=== PATIENT | male | born 1995 | race Caucasian/White ===

== ENCOUNTER 2024-03-31 09:32 | Inpatient (IN) | payer MEDICAID, SELFPAY ==
--- NOTE | ~2024-03-31 | XR_ITS ---
EXAMINATION: XR LUMBOSACRAL SPINE CLINICAL INFORMATION: Chronic back pain. COMPARISON: None available. TECHNIQUE: 3 views of the lumbosacral spine. FINDINGS: There is Castellvi type IV transitional anatomy at the lumbosacral junction. Minimal levocurvature of the lumbar spine which may be positional. The lumbar lordosis is maintained. The lumbar lordosis is maintained. No acute fracture or subluxation. No loss of vertebral body or intervertebral disc height. No concerning lytic or blastic osseous lesion. No abnormal soft tissue calcification. XR/XR lumbar spine 2-3V IMPRESSION: 1. Minimal levocurvature of the lumbar spine which may be positional. 2. No acute osseous abnormality. Electronically signed by: Eric Pastor MD 03/31/2024 11:43 AM EDT
[2024-03-31 09:50] VITALS: BP 151/97; BP 186/111; PULSE 124; PULSE 132; RESP 16; TEMP 37.2; O2SAT 100; O2SAT 98; BMI 24.8
[2024-03-31 09:52] VITALS: RESP 16
--- NOTE | 2024-03-31 09:54 | PC.NURSE ---
Jared comes to the ED today reports SI without a plan. He reports that he has been daily drinking for about 1 year now, attempted to quit but immediately went back to drinking. He reports that he drinks to make the suicidal thoughts go away most days. He reports increasing stressors that cause him to want to drink and kill himself. Pt is calm and cooperative, help seeking. he reports that he attempted to reach out to [facility] before calling 911 to see if he could get into detox by himself. Pt aware of plan of care for medical clearance then CARE team evaluation
--- NOTE | 2024-03-31 10:06 | ED_ITS ---
HPI - Psych General Chief Complaint: ETOH/Substance Use Stated Complaint: ETOH USE,SI W/NO PLAN,CALM/COOP @THIS TIME PER EMS Source: patient, EMS and old records reviewed Mode of arrival: EMS Limitations: no limitations History of Present Illness ED Provider: DANI TINEO Narrative: 29 yo male with PMH of ETOH abuse here with depression and SI - denies trauma, ingestions or falls. He denies withdrawal seizures, has chronic back pain but no falls has never had imaging before. He is intoxicated currently. MD complaint: suicidal ideation, feels depressed and alcohol abuse Onset (ago): year(s) Duration: intermittent and getting worse History of same: Yes Relieving factors: none Exacerbating factors: alcohol Context: recent alcohol abuse and significant life stressor Associated psychiatric symptoms: depression and suicidal ideation Associated symptoms: denies other symptoms Treatments prior to arrival: none If self harm: admits thoughts of self harm Related Data Home Medications ?Medication ?Instructions ?Recorded ?Confirmed No Known Home Meds 03/31/24 03/31/24 Allergies Allergy/AdvReac Type Severity Reaction Status Date / Time No Known Allergies Allergy Verified 03/31/24 09:52 Review of Systems 2 Review of Systems: Constitutional : No Fever, No Chills ENT/Mouth : No Ear Pain, No Nasal Congestion, No sore throat Eyes: No Eye Pain, No Swelling, No Redness Cardiovascular : No Chest Pain, No SOB Respiratory : No Cough, No Sputum, No Dyspnea Gastrointestinal : No Nausea, No Vomiting, No Diarrhea, No Hematochezia, No Melena Genitourinary : No Dysuria, No Urinary Frequency, No Hematuria Musculoskeletal : No Myalgias Skin : No Skin Lesions, No rash Neuro : No Weakness, No Numbness, No Paresthesias, No Dizziness, No Headache Psych : positive Anxiety, positive Depression, positive SI no HI All other systems reviewed and are negative PMFSH Past Medical History Attestation statement: The following information was validated with the patient. Medical History Alcohol abuse Social History Social History (Updated 03/31/24 @ 10:11 by Conchita Chang DO) Patient Tobacco Use Status: Never used Tobacco Smoked in Last 30 Days: No Use of substances other than those prescribed or required for medical reasons: No Advance Directives: No Advance Directives Information Provided: Yes Physical Exam 2 Vital Signs: Vital Signs: Last Vital Signs Temp 99.0 F 03/31/24 09:50 Pulse 132 H 03/31/24 09:50 Resp 16 03/31/24 09:52 BP 151/97 H 03/31/24 09:50 Pulse Ox 98 03/31/24 09:50 O2 Del Method Room Air 03/31/24 09:50 BMI result Body Mass Index 24.8 Appearance: Alert. Oriented X3. No acute distress. intoxicated Eyes: Pupils equal, round and reactive to light. ENT: Pharynx normal. Neck: Normal inspection. Neck supple. CVS: Normal heart rate and rhythm. Pulses normal. Respiratory: No respiratory distress. Breath sounds normal. Abdomen: Soft and nontender. Skin: Skin warm and dry. Normal skin color. Normal skin turgor. Extremities: No lower extremity edema. Neuro: Oriented X 3. No motor deficit. No sensory deficit. CN2-12 intact Medications Administered Generic Name Dose Route Start Last Admin Trade Name Freq PRN Reason Stop Dose Admin Nicotine Polacrilex 2 mg 03/31/24 12:37 03/31/24 12:46 Nicotine Polacrilex 2 Mg Gum BUCCAL 2 mg Q2H PRN Administration Nicotine Cravings Discontinued Medications Generic Name Dose Route Start Last Admin Trade Name Freq PRN Reason Stop Dose Admin Ondansetron HCl 4 mg 03/31/24 13:13 03/31/24 13:18 Ondansetron Odt 4 Mg Tab.Rapdis TRANSLINGU 03/31/24 13:14 4 mg ONCE ONE Administration Thiamine HCl 100 mg 03/31/24 09:56 03/31/24 10:12 Thiamine Hcl 100 Mg Tablet PO 03/31/24 09:57 100 mg ONCE ONE Administration Medical Decision Making Medical Decision Making [facility] Narrative: 29 yo male intoxicated here with c/o SI at this time chronic back pain complaints though no red flags or trauma will obtain imaging for old compression fracture - basic labs, CIWA, thiamine PRN ativan and CARE team consult Differential Diagnosis Differential Diagnoses: The differential diagnosis associated with the presentation includes SI, depression, ETOH abuse Admission/Observation Consideration of admission/observation: Escalation of care including admission/observation considered physician observation started at 1015am pending CARE team Consult Healthcare Provider Management of the patient was discussed with: Behavioral Health Provider Lab Data [facility] Lab Attestation statement: I reviewed the patient's lab results. 03/31/24 11:02 03/31/24 11:02 Labs: Lab Results 03/31/24 03/31/24 Range/Units 10:00 11:02 WBC 3.9 L (4.8-10.8) X10*3/uL RBC 4.42 L (4.60-5.80) X10*6/uL Hgb 14.8 (14.0-18.0) g/dl Hct 41.6 L (42.0-52.0) % MCV 94.1 (80.0-98.0) fL MCH 33.5 H (27.0-33.0) pg MCHC 35.6 (31.0-36.0) g/dl RDW 12.7 (11.0-16.0) % Plt Count 192 (160-400) X10*3/uL MPV 9.0 L (9.4-12.4) fL Immature Gran % (Auto) 0.5 H (0.0-0.4) % Neut % (Auto) 65.9 (45-73) % Lymph % (Auto) 16.0 L (20-40) % [place] % (Auto) 15.8 H (2-11) % Eos % (Auto) 0.5 (0-4) % Baso % (Auto) 1.3 (0-2) % Lymph # (Auto) 0.6 L (1.2-4.9) X10*3/uL [place] # (Auto) 0.6 (0.1-1.2) X10*3/uL Eos # (Auto) 0.0 (0.0-0.4) X10*3/uL Baso # (Auto) 0.1 (0.0-0.2) X10*3/uL Abs Immat Gran (auto) 0.02 (0.00-0.03) X10*3/uL Absolute Neuts (auto) 2.6 (2.0-8.3) x10*3/uL Absolute Nucleated RBC 0.000 (0.0-0.012) X10*3/uL Nucleated RBC % (auto) 0.0 (0.0-0.2) /100WBC Sodium 139 (135-145) mmol/L Potassium 4.0 (3.3-5.1) mmol/L Chloride 96 (96-108) mmol/L Carbon Dioxide 23 (22-29) mmol/L Anion Gap 24 H (12-20) BUN 4 L (9-16) mg/dL Creatinine 0.74 (0.5-1.4) mg/dL Estim Creat Clear Calc 163.1 Estimated GFR > 60 Random Glucose 83 (60-115) mg/dL Calcium 9.5 (8.4-10.2) mg/dL Total Bilirubin 0.9 (0.0-1.0) mg/dL AST 298 H (5-37) U/L ALT 114 H (0-40) U/L Alkaline Phosphatase 135 H (39-117) U/L Total Protein 7.6 (6.5-8.0) g/dL Albumin 4.3 (3.5-5.0) g/dL Urine Color Yellow Urine Appearance Clear Urine pH 5.5 (5.0-9.0) Ur Specific [place] 1.010 (1.005-1.025) Urine Protein 100 (2+) H (Neg-Trace) mg/dL Urine Glucose (UA) Negative (Negative) mg/dL Urine Ketones 40 (Negative) mg/dL Urine Blood Negative (Negative) Urine Nitrite Negative (Negative) Ur Leukocyte Esterase Negative (Negative) Urine RBC 0-2 (0-2) /HPF Urine WBC 0-5 (0-5) /HPF Ur Squamous Epith Cells 0-2 (0-2) /HPF Urine Bacteria None Seen (None Seen) Hyaline Casts 3-5 (0-2) /LPF Urine Opiates Screen Not Detected (Not Detect) Ur Buprenorphine Scrn Not Detected (Not Detect) ng/mL Ur Oxycodone Screen Not Detected (Not Detect) ng/mL Urine Methadone Screen Not Detected (Not Detect) ng/mL Urine Fentanyl Screen Not Detected (Not Detect) Ur Barbiturates Screen Not Detected (Not Detect) Ur Phencyclidine Scrn Not Detected (Not Detect) Ur Amphetamines Screen Not Detected (Not Detect) U Benzodiazepines Scrn Not Detected (Not Detect) Urine Cocaine Screen Not Detected (Not Detect) U Marijuana (THC) Screen Not Detected (Not Detect) Ethyl Alcohol 399 H* mg/dL Independent Interpretation I performed an independent interpretation of an: Plain X-Ray (no fracture) Radiology Impression Discussion of test interpretation with radiology: I have reviewed the radiologist's reading. Independent Historian Clinical information obtained from an independent historian. History obtained from or confirmed by: EMS Discharge Plan Discharge Clinical Impression: Alcohol abuse Patient Disposition: Still a Patient Prescriptions: No Action No Known Home Meds Print Language: Yoruba
[2024-03-31] MEDS: Thiamine HCL 100 MG TABLET PO (10:12)
[2024-03-31 10:17] LABS: Appearance Urine Clear; Color Urine Yellow; Glucose Urine UA Negative (Negative); Leukocyte Esterase Urine Negative (Negative); Nitrite Urine Negative (Negative); PH 5.5 (5.0-9.0); UMIC TRIGGER UACC YES; Urine Blood Negative (Negative); Urine Ketones 40 mg/dL (Negative); Urine Protein 100 (2+) mg/dL (Neg-Trace)
[2024-03-31 10:22] LABS: Amphetamine Screen Urine Not Detected (Not Detect); Barbiturates, Urine Not Detected (Not Detect); Benzodiazepines Screen Urine Not Detected (Not Detect); Buprenorphine Scr Not Detected (Not Detect); Cannabinoid Screen Urine Not Detected (Not Detect); Cocaine Screen Urine Not Detected (Not Detect); Fentanyl, urine Not Detected (Not Detect); Methadone Screen, Urine Not Detected (Not Detect); Opiate Screen Urine Not Detected (Not Detect); Oxycodone Screen Urine Not Detected (Not Detect); Phencyclidine Screen Urine Not Detected (Not Detect)
[2024-03-31 10:41] LABS: Bacteria Urine None Seen (None Seen); RBC Urine 0-2 /HPF (0-2); Squamous Epithelial Cell Urine 0-2 /HPF (0-2); WBC Urine 0-5 /HPF (0-5)
[2024-03-31 11:33] LABS: MANUAL DIFF FLAG NO
[2024-03-31 11:40] LABS: Basophils Absolute Auto 0.1 X10*3/uL (0.0-0.2); Basophils Percent Auto 1.3 % (0-2); Eosinophils Percent Auto 0.5 % (0-4); Hematocrit 41.6 % (42.0-52.0); Hemoglobin 14.8 g/dl (14.0-18.0); Imm Gran Abs Auto 0.02 X10*3/uL (0.00-0.03); Imm Gran Pct Auto 0.5 % (0.0-0.4); Lymphocytes Absolute Auto 0.6 X10*3/uL (1.2-4.9); Mean Corpuscular HGB Conc 35.6 g/dl (31.0-36.0); Mean Corpuscular Hemoglobin 33.5 pg (27.0-33.0); Mean Corpuscular Volume 94.1 fL (80.0-98.0); Monocytes Absolute Auto 0.6 X10*3/uL (0.1-1.2); Monocytes Percent Auto 15.8 % (2-11); Neutrophils Absolute Auto 2.6 x10*3/uL (2.0-8.3); Neutrophils Percent Auto 65.9 % (45-73); Platelet Count 192 X10*3/uL (160-400); Red Blood Count 4.42 X10*6/uL (4.60-5.80); Red Cell Distribution Width 12.7 % (11.0-16.0); White Blood Count 3.9 X10*3/uL (4.8-10.8)
[2024-03-31 11:52] LABS: Alanine Aminotransferase 114 U/L (0-40); Albumin Level 4.3 g/dL (3.5-5.0); Alkaline Phosphatase 135 U/L (39-117); Anion Gap 24 (12-20); Aspartate Amino Transferase 298 U/L (5-37); Bilirubin Total 0.9 mg/dL (0.0-1.0); Blood Urea Nitrogen 4 mg/dL (9-16); Calcium 9.5 mg/dL (8.4-10.2); Carbon Dioxide 23 mmol/L (22-29); Chloride 96 mmol/L (96-108); Creatinine Clr Calc Pharmacy 163.1; Estimated Glomerular Filt Rate > 60; Ethanol 399 mg/dL; Glucose Random 83 mg/dL (60-115); Sodium 139 mmol/L (135-145); Total Protein 7.6 g/dL (6.5-8.0)
[2024-03-31] MEDS: Nicotine Polacrilex 2 MG GUM BUCCAL ×3 (12:46→22:23)
[2024-03-31] MEDS: Ondansetron ODT 4 MG TAB.RAPDIS TRANSLINGU (13:18)
[2024-03-31 20:34] VITALS: BP 132/86; PULSE 96; RESP 18; TEMP 37; O2SAT 98
[2024-03-31 22:23] VITALS: BP 135/90; PULSE 125; RESP 20; O2SAT 98
[2024-03-31] MEDS: LORazepam 1 MG TABLET 2 MG PO (22:23)
[2024-04-01] VITALS (10 sets, daily range): BP systolic 127–151; BP diastolic 84–98; PULSE 108–127; RESP 16–30; TEMP 36.2–37.2; O2SAT 95–98; BMI 29.3
[2024-04-01] MEDS: Nicotine Polacrilex 2 MG GUM BUCCAL ×5 (01:42→14:55)
--- NOTE | 2024-04-01 01:49 | PC.NURSE ---
pt asking for nicotine gum, given.
[2024-04-01] MEDS: LORazepam 1 MG TABLET 2 MG PO ×3 (03:49→10:32)
--- NOTE | 2024-04-01 03:50 | PC.NURSE ---
medicated for withdrawal.
--- NOTE | 2024-04-01 09:15 | PC.NURSE ---
Pt making bizarre statements- thinking we were talking about beautiful process and it was directed at him. Pt able to redirected- Pt noticeably shaking- pt medicated as per KERRY
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
[2024-04-01] MEDS: LORazepam 2 MG/ML VIAL IVPUSH ×2 (12:33→20:31)
[2024-04-01] MEDS: PHENobarbitaL sodium 130 MG/ML IM ONCE 375 MG IM (12:44)
--- NOTE | 2024-04-01 13:00 | P.HPHOSP_ITS ---
History of Present Illness Date of Service: 04/01/24 Chief Complaint: etoh withdrawal, depression, SI 29 yo male with a pmhx signficant for etoh abuse and depression, presented to the ED with etoh withdrawal, SI and depression. he reports heavy etoh use since a teenager, currently consuming 1 handle of etoh/day. would like to stop drinking. no nausea or vomiting. nurses noted visual and auditory hallucinations, pt declines. difficult history to obtain. Review of Systems 2 Constitutional: Constitutional: Denies body ache(s), Denies fatigue and Denies headache(s) Eyes: Eyes: Denies change in vision ENT: Denies headache(s), Denies nasal congestion and Denies nasal discharge Cardiovascular: Cardiovascular: Denies dyspnea Respiratory: Respiratory: Denies cough and Denies dyspnea Gastrointestinal: Gastrointestinal: Denies melena, Denies constipation, Denies diarrhea, Denies nausea and Denies vomiting Genitourinary: Genitourinary: Denies dysuria Musculoskeletal: Musculoskeletal: Denies myalgias and Denies muscle weakness Integumentary/Breasts: Skin/Breast: Denies rash Neurologic: Reports as per HPI and Denies headache(s) Psychiatric: Psychiatric: Reports depression Endocrine: Endocrine: Denies fatigue PMFSH Medical History Alcohol abuse Social History Alcohol intake: current Alcohol intake frequency: 3 or more drinks per day Alcohol type: beer and hard liquor Comment: 1 handle/day Patient Tobacco Use Status: Current everyday Tobacco user Smoked in Last 30 Days: No Use of substances other than those prescribed or required for medical reasons: No Advance Directives: No Advance Directives Information Provided: Yes Nutrition Risks: No Nutritional Risk Narrative: current tobacco smoker, amount unclear. consumes 1 handle of etoh/day. Meds Allergies Allergy/AdvReac Type Severity Reaction Status Date / Time No Known Allergies Allergy Verified 03/31/24 09:52 Active Medications: Current Medications Lorazepam (Lorazepam 1 Mg Tablet) 2 mg PO Q3H PRN PRN Reason: Alcohol Withdrawal Last Admin: 04/01/24 09:06 Dose: 2 mg Nicotine Polacrilex (Nicotine Polacrilex 2 Mg Gum) 2 mg BUCCAL Q2H PRN PRN Reason: Nicotine Cravings Last Admin: 04/01/24 12:03 Dose: 2 mg Pharmacy Consult (Consult Rx Etoh Phenob Im/Po) 1 each MISCELLANE ONCE PRN; Protocol PRN Reason: Consult order Phenobarbital (Phenobarbital 30 Mg Tablet) 60 mg PO BID TOÑO; Protocol Stop: 04/03/24 21:01 Phenobarbital (Phenobarbital 30 Mg Tablet) 30 mg PO BID TOÑO; Protocol Stop: 04/05/24 21:01 Phenobarbital (Phenobarbital 30 Mg Tablet) 30 mg PO DAILY TOÑO; Protocol Stop: 04/07/24 09:01 Phenobarbital Sodium (Phenobarbital Sodium 130 Mg/Ml Im Once) 375 mg IM ONCE ONE; Protocol Stop: 04/01/24 13:01 Last Admin: 04/01/24 12:44 Dose: 375 mg Phenobarbital Sodium (Phenobarbital Sodium 130 Mg/Ml Vial Im Q3hx2) 280 mg IM Q3H TOÑO; Protocol Stop: 04/01/24 19:01 Home Medications ?Medication ?Instructions ?Recorded ?Confirmed ?Last Taken ?Type No Known Home Meds 03/31/24 03/31/24 Unknown History Physical Exam 2 Vital Signs and Narrative: Vital Signs: Last Vital Signs Temp 98.7 F 04/01/24 09:07 Pulse 127 H 04/01/24 12:44 Resp 18 04/01/24 12:44 BP 143/96 H 04/01/24 12:44 Pulse Ox 98 04/01/24 12:44 O2 Del Method Room Air 04/01/24 12:44 BMI result Body Mass Index 24.8 General: AOx3, no acute distress Resp: CTA bilaterally CVS: S1, S2, RR, tachy GI: +BS, NT, no distention Skin: Warm, mild perspiration on back/face Neuro: Moderate tremor when raising arms, difficulty with coordination Extremities: No edema Psych: Anxious, guarded Results Labs 03/31/24 11:02 04/01/24 14:00 Assessment and Plan (1) Alcohol withdrawal: Status: Acute (2) Alcohol abuse: Status: Acute Plan 29 yo male with a pmhx signficant for etoh abuse and depression, presented to the ED with etoh withdrawal, SI and depression. acute etoh withdrawal - moderate tremor, nursing reports auditory and visual hallucinations, no nausea, vomiting or headache - CIWA-Ar currently 26 - received phenobarb protocol, lorazepam, thiamine in ED - continue phenobarb protocol - Daily MVI, folic acid 1mg, thiamine 100mg QD - IV famotidine - continue CIWA scale - addiction med consult - admit to telemetry depression/SI - CARE consult in leukopenia and tachycardia - not sepsis due to withdrawal full code VTE prohy: pneumoboots and lovenox Pt with acute etoh withdrawal requring admission to telemetry for treatment and monitoring through withdrawal for at least 2 midnights stay. Quality Stroke Does the patient have a stroke diagnosis?: No VTE Prior VTE?: No VTE Risk Level:: Medical - moderate - high VTE Device Contraindication: N/A - Device Ordered VTE Drug Contraindication: N/A - Med Ordered
--- NOTE | 2024-04-01 13:15 | PHA.MEDREC ---
Pharmacy Consult ? Medication Reconciliation Pharmacy reviewed med recd one by nursing. Patient not able to speak due to state of being right now. No claims were found in our system which matches patient stating they are not taking anything to the nurse.
--- NOTE | 2024-04-01 13:20 | PC.NURSE ---
IV placed by this RN. when returning to the patient after obtaining meds, he was very paranoid and stating that people in there are cutting off legs I heard them say it referencing the x ray room across the tadeo. Pt attempted to pull out the IV. Pt stood up and was agitated. Security called to bedside and two other RNs. Pt eventually deescalated and consented to ativan and phenobarn for alcohol withdrawal. Sitter at bedside.
[2024-04-01] MEDS: Lactated Ringers 1,000 ML 100 ML IVCONT (14:35)
[2024-04-01 14:42] LABS: Anion Gap 25 (12-20); Blood Urea Nitrogen 5 mg/dL (9-16); Calcium 9.6 mg/dL (8.4-10.2); Carbon Dioxide 19 mmol/L (22-29); Chloride 91 mmol/L (96-108); Creatinine Clr Calc Pharmacy 138.7; Estimated Glomerular Filt Rate > 60; Glucose Random 84 mg/dL (60-115); Magnesium 1.8 mg/dL (1.6-2.6); Potassium 3.6 mmol/L (3.3-5.1); Sodium 131 mmol/L (135-145)
[2024-04-01] MEDS: Folic Acid 1 MG TABLET PO (14:55)
[2024-04-01 15:03] LABS: Folate 11.4 ng/mL (> or = 4.0); Vitamin B12 488 pg/mL (200-900)
[2024-04-01] MEDS: PHENobarbitaL sodium 65 MG/ML VIAL IVPUSH (15:24)
--- NOTE | 2024-04-01 15:24 | PC.NURSE ---
IVP phenobarb verified and confirmed with Dr. Mcnally and pharmacy
[2024-04-01] MEDS: PHENobarbitaL sodium 130 MG/ML VIAL IM Q3Hx2 280 MG IM ×2 (16:39→19:33)
--- NOTE | 2024-04-01 18:42 | MHC.EDTECH ---
Dinner tray given
--- NOTE | 2024-04-01 20:38 | PC.NURSE ---
pt became agitated while attempting to transport to floor. given ativan. transported by WORKFORCE SPECIALIST, sitter and security.
[2024-04-01] MEDS: 0.9 % Sodium Chloride Flush 3 ML SYRINGE IVFLUSH (21:12)
[2024-04-01] MEDS: Famotidine/PF 20 MG/2 ML VIAL IVPUSH (21:12)
[2024-04-02] VITALS: BP 121/72; PULSE 101; RESP 16; TEMP 36.3; O2SAT 97
[2024-04-02] MEDS: Lactated Ringers 1,000 ML 100 ML IVCONT ×2 (02:35→07:05)
[2024-04-02 04:00] VITALS: BP 138/87; PULSE 82; RESP 20; TEMP 37.2; O2SAT 96
[2024-04-02] MEDS: LORazepam 1 MG TABLET 2 MG PO ×3 (05:06→13:04)
[2024-04-02 07:33] LABS: MANUAL DIFF FLAG NO
[2024-04-02 07:49] LABS: Basophils Absolute Auto 0.1 X10*3/uL (0.0-0.2); Basophils Percent Auto 1.1 % (0-2); Eosinophils Percent Auto 0.9 % (0-4); Hematocrit 35.8 % (42.0-52.0); Imm Gran Abs Auto 0.02 X10*3/uL (0.00-0.03); Imm Gran Pct Auto 0.4 % (0.0-0.4); Lymphocytes Absolute Auto 0.6 X10*3/uL (1.2-4.9); Lymphocytes Percent Auto 13.4 % (20-40); Mean Corpuscular HGB Conc 36.3 g/dl (31.0-36.0); Mean Corpuscular Hemoglobin 33.9 pg (27.0-33.0); Mean Corpuscular Volume 93.2 fL (80.0-98.0); Mean Platelet Volume 10.1 fL (9.4-12.4); Monocytes Absolute Auto 0.7 X10*3/uL (0.1-1.2); Monocytes Percent Auto 14.9 % (2-11); Neutrophils Absolute Auto 3.3 x10*3/uL (2.0-8.3); Neutrophils Percent Auto 69.3 % (45-73); Platelet Count 160 X10*3/uL (160-400); Red Blood Count 3.84 X10*6/uL (4.60-5.80); Red Cell Distribution Width 12.2 % (11.0-16.0); White Blood Count 4.7 X10*3/uL (4.8-10.8)
[2024-04-02 08:00] VITALS: BP 148/96; PULSE 121; RESP 20; TEMP 36.1; O2SAT 97
[2024-04-02 08:01] LABS: Anion Gap 20 (12-20); Blood Urea Nitrogen 3 mg/dL (9-16); Calcium 9.8 mg/dL (8.4-10.2); Carbon Dioxide 22 mmol/L (22-29); Chloride 96 mmol/L (96-108); Creatinine Clr Calc Pharmacy 180.2; Estimated Glomerular Filt Rate > 60; Glucose Random 98 mg/dL (60-115); Magnesium 1.8 mg/dL (1.6-2.6); Potassium 3.5 mmol/L (3.3-5.1); Sodium 134 mmol/L (135-145)
[2024-04-02] MEDS: Thiamine HCL 100 MG TABLET PO (08:15)
[2024-04-02] MEDS: Multivitamin TABLET 1 TAB PO (08:15)
[2024-04-02] MEDS: PHENobarbitaL 30 MG TABLET 60 MG PO ×2 (08:15→21:52)
[2024-04-02] MEDS: 0.9 % Sodium Chloride Flush 3 ML SYRINGE IVFLUSH ×2 (08:16→21:52)
[2024-04-02] MEDS: Nicotine Polacrilex 2 MG GUM BUCCAL (08:43)
--- NOTE | 2024-04-02 10:57 | MHC.RECOVRN ---
Addendum entered by Jes Mackenzie RN 04/03/24 09:14: Unable to complete AUDIT C with pt. due to confusion, hallucination/delusions. Will attempt at a later date Original Note: Met with pt in 482-1? after consultation placed to Addiction Medicine for ETOH abuse/Withdrawal? Chart review completed and received report from floor nurse Tiny. Pt had presented to the ED with SI without plan secondary to increased ETOH use. Initially a bed search for psych placement was initiated but as pt. Appeared to begin significant ETOH W/D he was admitted to the floor for treatment and monitoring through W/D. He is currently receiving phenobarbital protocol.? ? Upon assessment pt is sitting in the recliner awake and alert with a sitter at bedside.? ? He is reporting diarrhea, has visible hand tremors and presents with auditory/visual disturbances as well as delusions.? He is only oriented to person.? He does appear comfortable and denies any distress.? CIWA this AM was 12.? Pt has Ativan available Q 3 hours as needed.? Last dose was received approx 2 hours ago.? Pt reports to this medical technical writer that he has been drinking since the age of 18 but that it has only recently started to elevate.? He could not give me an amount or frequency of drinking but did report to ED nurse that he drinks regularly to make his suicidal thoughts go away and the day he was brought in (03/31 @ 9:50AM) he had drank 6 ?Natty Daddys?. Due to pt?s mental status and orientation it was difficult to determine a possible POC with him at this visit.? He may need psych stabilization before he can participate in planning for his recovery.??? T/W provided pt with resources for AUD and will return tomorrow to review with him, if he is more clear minded.? Report provided to floor nurse Tiny along with ACS team.
[2024-04-02] MEDS: OLANZapine 10 MG VIAL 5 MG IM (11:29)
--- NOTE | 2024-04-02 11:31 | PC.NURSE ---
code assist called on patient at 8:15 due to patient running into other patients rooms and refusing to settle down when staff attempted to redirect him. PO ativan given per AUG. MD called to bedside at 11:00 for patient becoming increasingly agitated and restless. Patient attempted to slam arm in closet door to remove IV tubing. Patient continued to pace room yelling. 5mg IM zyprexa ordered and administered per AUG. sitter remains at bedside
[2024-04-02 12:00] VITALS: BP 136/91; PULSE 131; RESP 20; TEMP 36.1; O2SAT 96
--- NOTE | 2024-04-02 12:34 | MHC.CM.PN ---
Pt with ETOH withdrawal, and is experiencing confusion and agitation. This CM unable to complete CM intake assessment at this time. CM to re-approach pt when mental status improves. Pt does not have anyone in his contact list to speak with.
--- NOTE | 2024-04-02 12:36 | HO.PM.IMPN ---
Subjective Subjective Date of Service: 04/02/24 Interval History: Patient is intermittently agiation, having visual and auditory hallucination, agresion at time, pulling tubes, and trying to escape Physical Exam Vital Signs: Vital Signs: Last Vital Signs Temp 97.0 F 04/02/24 12:00 Pulse 131 H 04/02/24 12:00 Resp 20 04/02/24 12:00 BP 136/91 H 04/02/24 12:00 Pulse Ox 96 04/02/24 12:00 O2 Del Method Room Air 04/02/24 12:00 BMI result Body Mass Index 29.3 General: AO X 2, no acute distress, hypervigilent Resp: CTA bilateral CVS: S1,S2,RRR GI: +BS, NT, no distention Skin: No rash Neuro: motor grossly intact Psych: / Objective Data Active Medications Acetaminophen (Acetaminophen 325 Mg Tablet) 650 mg PO Q6H PRN PRN Reason: Pain, Mild (Pain Scale 1-3), fever or headache Calcium Carbonate (Calcium Carbonate 750 Mg Tab.Chew) 750 mg PO Q4H PRN PRN Reason: Heartburn Enoxaparin Sodium (Enoxaparin Sodium 40 Mg/0.4 Ml Syringe) 40 mg SUBCUT Q24H [facility] Last Admin: 04/01/24 14:12 Dose: Not Given Documented By: ELDON Non-Admin Reason: Patient Refused Famotidine (Famotidine/Pf 20 Mg/2 Ml Vial) 20 mg IVPUSH BID [facility] Last Admin: 04/02/24 08:25 Dose: Not Given Documented By: SNOW Non-Admin Reason: Patient Refused Folic Acid (Folic Acid 1 Mg Tablet) 1 mg PO Q24H [facility] Last Admin: 04/01/24 14:55 Dose: 1 mg Documented By: ELDON Lorazepam (Lorazepam 1 Mg Tablet) 2 mg PO Q3H PRN PRN Reason: Alcohol Withdrawal Last Admin: 04/02/24 08:43 Dose: 2 mg Documented By: SNOW Magnesium Hydroxide (Milk Of Magnesia 30 Ml Oral.Susp) 30 ml PO DAILY PRN PRN Reason: Constipation Melatonin (Melatonin 3 Mg Tablet) 6 mg PO BEDTIME PRN PRN Reason: Insomnia Multivitamins/Vitamin C (Multivitamin Tablet) 1 tab PO DAILY [facility] Last Admin: 04/02/24 08:15 Dose: 1 tab Documented By: SNOW Nicotine Polacrilex (Nicotine Polacrilex 2 Mg Gum) 2 mg BUCCAL Q2H PRN PRN Reason: Nicotine Cravings Last Admin: 04/02/24 08:43 Dose: 2 mg Documented By: SNOW Pharmacy Consult (Consult Rx Etoh Phenob Im/Po) 1 each MISCELLANE ONCE PRN; Protocol PRN Reason: Consult order Phenobarbital (Phenobarbital 30 Mg Tablet) 60 mg PO BID [facility]; Protocol Stop: 04/03/24 21:01 Last Admin: 04/02/24 08:15 Dose: 60 mg Documented By: SNOW Phenobarbital (Phenobarbital 30 Mg Tablet) 30 mg PO BID [facility]; Protocol Stop: 04/05/24 21:01 Phenobarbital (Phenobarbital 30 Mg Tablet) 30 mg PO DAILY [facility]; Protocol Stop: 04/07/24 09:01 Sodium Chloride (0.9 % Sodium Chloride Flush 3 Ml Syringe) 3 ml IVFLUSH QSHIFT [facility] Last Admin: 04/02/24 08:16 Dose: 3 ml Documented By: SNOW Thiamine HCl (Thiamine Hcl 100 Mg Tablet) 100 mg PO Q24H [facility] Last Admin: 04/02/24 08:15 Dose: 100 mg Documented By: SNOW Labs 04/02/24 07:02 04/02/24 07:02 Labs: Laboratory Results - last 24 hr 04/01/24 04/02/24 14:00 07:02 MCV 93.2 MCH 33.9 H MCHC 36.3 H RDW 12.2 Plt Count 160 MPV 10.1 Immature Gran % (Auto) 0.4 Neut % (Auto) 69.3 Lymph % (Auto) 13.4 L [place] % (Auto) 14.9 H Eos % (Auto) 0.9 Baso % (Auto) 1.1 Lymph # (Auto) 0.6 L [place] # (Auto) 0.7 Eos # (Auto) 0.0 Baso # (Auto) 0.1 Abs Immat Gran (auto) 0.02 Absolute Neuts (auto) 3.3 Absolute Nucleated RBC 0.000 Nucleated RBC % (auto) 0.0 Anion Gap 25 H 20 Estim Creat Clear Calc 138.7 180.2 Estimated GFR > 60 > 60 Random Glucose 84 98 Calcium 9.6 9.8 Magnesium 1.8 1.8 Vitamin B12 488 Folate 11.4 Assessment and Plan (1) Depressive disorder, not elsewhere classified: Status: Acute (2) Alcohol use disorder: Status: Acute (3) Delirium, withdrawal, alcoholic: Status: Acute Plan 29 yo male with a pmhx signficant for etoh abuse and depression, presented to the ED with etoh withdrawal, SI and depression. acute etoh withdrawal with Psychotic symptoms, pretty agitated despite, phenobarb, ativan and has required Zyprexa and keep him calm, still with tremors, unsteady, -continue Phenobartial, Ativan, refusing IV and cardiac monitoring. CIWA. Psych consult for component of Psychosis. Folic acid and Thiamine replacement. Will discuss with ICU for possible management in the icu if escalating, depression/SI, Psychosis -Psych consult leukopenia and tachycardia - not sepsis due to withdrawal full code VTE prohy: pneumoboots and lovenox Pt with acute etoh withdrawal requring admission to telemetry for treatment and monitoring through withdrawal for at least 2 midnights stay. Quality Stroke Does the patient have a stroke diagnosis?: No VTE Prior VTE?: No VTE Risk Level:: Medical - moderate - high VTE Device Contraindication: N/A - Device Ordered VTE Drug Contraindication: N/A - Med Ordered
--- NOTE | 2024-04-02 13:52 | W.PM.CCCN ---
History of Present Illness Data of Consult Service Date: 04/02/24 Primary Care Provider: None Physician HPI Reason for consult: Alcohol withdrawal 29-year-old male with history of alcohol abuse, depression presented to the psych with suicidal ideation. He has been drinking since his teenage and went into alcohol withdrawal at the psych unit so he is transferred to inpatient Medicine. This morning he is agitated and walking into different rooms so MICU was consulted Review of Systems Review of Systems: Unable to obtain as patient is confused PMFSH Past Medical History Medical History Alcohol abuse Social History Social History Household Members: Family Household Members Other:: patient reports living with his mother Housing: Apartment Do you presently have visiting nurse or other home services: No Alcohol intake: current Alcohol intake frequency: 3 or more drinks per day Alcohol type: beer and hard liquor Comment: seizure precautions in place Patient Tobacco Use Status: Current everyday Tobacco user Smoked in Last 30 Days: Yes e-Cigarette/Vaping Use: Currently Using Patient Interested in Nicotine Replacement: Yes Patient Given Instructions on How to Stop Smoking: Yes Date Education Initiated: 04/01/24 Second Hand Smoke Exposure: No Use of substances other than those prescribed or required for medical reasons: No Currently Displaying Signs/Symptoms of Drug Intoxication Withdrawal: No Any prior treatment program specific to substance use: Yes Have you been hit, kicked, punched, or otherwise hurt by someone within the past year? If so, by whom?: No Do you feel safe in your current relationship?: No Current Relationship Is there a partner from a previous relationship who is making you feel unsafe now?: No Are you made to feel afraid or neglected: No Advance Directives: No Advance Directives Information Provided: Yes Advance Directives on File: No Do you have a plan to hurt others: No Plan Recently lost weight without trying: No How much weight loss: Not applicable Eating poorly because of decreased appetite: No Nutrition screen score: 0 Nutrition Risks: No Nutritional Risk Poor oral hygiene: No Meds Allergies Allergy/AdvReac Type Severity Reaction Status Date / Time No Known Allergies Allergy Verified 03/31/24 09:52 Active Medications: Current Medications Acetaminophen (Acetaminophen 325 Mg Tablet) 650 mg PO Q6H PRN PRN Reason: Pain, Mild (Pain Scale 1-3), fever or headache Calcium Carbonate (Calcium Carbonate 750 Mg Tab.Chew) 750 mg PO Q4H PRN PRN Reason: Heartburn Enoxaparin Sodium (Enoxaparin Sodium 40 Mg/0.4 Ml Syringe) 40 mg SUBCUT Q24H [facility] Last Admin: 04/01/24 14:12 Dose: Not Given Famotidine (Famotidine/Pf 20 Mg/2 Ml Vial) 20 mg IVPUSH BID [facility] Last Admin: 04/02/24 08:25 Dose: Not Given Folic Acid (Folic Acid 1 Mg Tablet) 1 mg PO Q24H [facility] Last Admin: 04/01/24 14:55 Dose: 1 mg Lorazepam (Lorazepam 1 Mg Tablet) 2 mg PO Q3H PRN PRN Reason: Alcohol Withdrawal Last Admin: 04/02/24 13:04 Dose: 2 mg Magnesium Hydroxide (Milk Of Magnesia 30 Ml Oral.Susp) 30 ml PO DAILY PRN PRN Reason: Constipation Melatonin (Melatonin 3 Mg Tablet) 6 mg PO BEDTIME PRN PRN Reason: Insomnia Multivitamins/Vitamin C (Multivitamin Tablet) 1 tab PO DAILY [facility] Last Admin: 04/02/24 08:15 Dose: 1 tab Nicotine Polacrilex (Nicotine Polacrilex 2 Mg Gum) 2 mg BUCCAL Q2H PRN PRN Reason: Nicotine Cravings Last Admin: 04/02/24 08:43 Dose: 2 mg Pharmacy Consult (Consult Rx Etoh Phenob Im/Po) 1 each MISCELLANE ONCE PRN; Protocol PRN Reason: Consult order Phenobarbital (Phenobarbital 30 Mg Tablet) 60 mg PO BID [facility]; Protocol Stop: 04/03/24 21:01 Last Admin: 04/02/24 08:15 Dose: 60 mg Phenobarbital (Phenobarbital 30 Mg Tablet) 30 mg PO BID [facility]; Protocol Stop: 04/05/24 21:01 Phenobarbital (Phenobarbital 30 Mg Tablet) 30 mg PO DAILY [facility]; Protocol Stop: 04/07/24 09:01 Sodium Chloride (0.9 % Sodium Chloride Flush 3 Ml Syringe) 3 ml IVFLUSH QSHIFT [facility] Last Admin: 04/02/24 08:16 Dose: 3 ml Thiamine HCl (Thiamine Hcl 100 Mg Tablet) 100 mg PO Q24H [facility] Last Admin: 04/02/24 08:15 Dose: 100 mg Home Medications ?Medication ?Instructions ?Recorded ?Confirmed ?Last Taken ?Type No Known Home Meds 03/31/24 03/31/24 Unknown History Physical Exam Vital Signs: Vital Signs: Last Vital Signs Temp 97.0 F 04/02/24 12:00 Pulse 131 H 04/02/24 12:00 Resp 20 04/02/24 12:00 BP 136/91 H 04/02/24 12:00 Pulse Ox 96 04/02/24 12:00 O2 Del Method Room Air 04/02/24 12:00 BMI result Body Mass Index 29.3 General: Not in any distress, walking in and around the room Nutritional Appearance: well nourished and overweight Eyes: appearance normal, both eyes and all related structures; Alignment and Position: alignment normal and position normal Neck: No lymphadenopathy, no thyromegaly Resp: bilateral air entry equal, occasional added sounds present Cardio: Regular rate, regular rhythm; Heart sounds: S1 normal heart sound present and S2 normal heart sound present GI: soft, nontender, no guarding, no hepatosplenomegaly : bladder normal to inspection, bladder normal to palpation, no renal angle tenderness Skin: no rashes or lesions noted and elasticity normal Neuro: No focal deficits, confused, not oriented to time and place; oriented to self Results Labs 04/02/24 07:02 04/02/24 07:02 Labs: Short CBC 04/02/24 Range/Units 07:02 WBC 4.7 L (4.8-10.8) X10*3/uL Hgb 13.0 L (14.0-18.0) g/dl Hct 35.8 L (42.0-52.0) % Plt Count 160 (160-400) X10*3/uL BMP 04/01/24 04/02/24 14:00 07:02 Sodium 131 L 134 L Potassium 3.6 3.5 Chloride 91 L 96 Carbon Dioxide 19 L 22 BUN 5 L 3 L Creatinine 0.87 0.74 Calcium 9.6 9.8 Assessment and Plan (1) Alcohol withdrawal: Status: Acute (2) Alcohol abuse: Status: Acute Plan Alcohol withdrawal: Patient has history of alcohol abuse and is currently in withdrawal Responded okay to to 260 mg of IM phenobarb, if the patient is agitated and not behaving in next couple of hours please increase the dose of IM phenobarbital 520mg. If he does not need a dose in next 4-6 hours we can repeat 260 mg IM as needed. If the pateint doesnt respond to 520mg will transfer the patient to MICU Continue thiamine and folate. Alcoholic hepatitis: Bilirubin normal, AST ALT elevated. Possible discrimination score is low and prednisolone is not indicated Prophylaxis: Lovenox
[2024-04-02] MEDS: PHENobarbitaL sodium 130 MG/ML VIAL 260 MG IM (13:53)
--- NOTE | 2024-04-02 15:13 | PM.PSYCN ---
History of Present Illness Date of Service: 04/02/24 Chief Complaint: ETOH withdrawal, SI Reason for Consult: psychosis HPI Narrative: pt seen in his room 482, sitter at bedside. pt was receptive and pleasant. on being asked what place we were in, he responded, 700. over the course of several minutes he variably said that we were in [place] and [place]; that it was march 25 or april 25 or some time in june; that we were in [place] at [facility]. he was unable to retain the proper month, day of the week, or date at 3 minutes. he was consistently aware that the year is 2023. he began to pull hard on the bed rail, saying it was a bottle of bleach he was trying to move. MD informed him it was a bed rail. he replied, yeah, it looks easy until you try. he then got out of the bed and began to pull hard on the bed rail with both hands. MD repeatedly informed him it was a bed rail rather than a bottle of bleach, that it was not going to come off, and that he should get back in bed and lie down (which he ultimately did). later in the interview he became silent, looking around the room, as if listening to or for something. he looked at empty chair next to MD, trying to draw MD's gaze there as if to indicate something disturbing were on the chair. in all, he was completely delirious. he reported chronic SI, endorsing it at present, but denied plan. he nevertheless reported his mood as pretty decent. he denied HI/AVH. Past Psychiatric History[facility], via [facility] SIB: denies outpt: denies [facility] Medical History Alcohol abuse Family History: reports lots of substance abuse in his family Substance History: alcohol, daily, 1 sleeve vodka. reports h/o substance abuse Tx denies use of substances other than alcohol Trauma History: deferred Diagnostics Vital Signs (24Hr): Vital Signs - 24 hr 04/01/24 15:28 04/01/24 15:50 04/01/24 18:04 Temperature 98.9 F 98.7 F Pulse Rate 115 H 125 H 112 H Respiratory Rate 22 H 22 H 26 H Blood Pressure 131/88 127/84 134/87 Pulse Oximetry 97 97 97 Oxygen Delivery Method Room Air Room Air Room Air 04/01/24 21:14 04/02/24 00:00 04/02/24 04:00 Temperature 97.1 F 97.4 F 98.9 F Pulse Rate 120 H 101 H 82 Respiratory Rate 18 16 20 Blood Pressure 137/85 121/72 138/87 Pulse Oximetry 95 97 96 Oxygen Delivery Method Room Air Room Air Room Air 04/02/24 08:00 04/02/24 12:00 Temperature 97.0 F 97.0 F Pulse Rate 121 H 131 H Respiratory Rate 20 20 Blood Pressure 148/96 H 136/91 H Pulse Oximetry 97 96 Oxygen Delivery Method Room Air Room Air BMI result Body Mass Index 29.3 Labs 04/02/24 07:02 04/02/24 07:02 Labs: Laboratory Results - last 48 hr 04/01/24 04/02/24 14:00 07:02 WBC 4.7 L RBC 3.84 L Hgb 13.0 L Hct 35.8 L MCV 93.2 MCH 33.9 H MCHC 36.3 H RDW 12.2 Plt Count 160 MPV 10.1 Immature Gran % (Auto) 0.4 Neut % (Auto) 69.3 Lymph % (Auto) 13.4 L Gates % (Auto) 14.9 H Eos % (Auto) 0.9 Baso % (Auto) 1.1 Lymph # (Auto) 0.6 L Gates # (Auto) 0.7 Eos # (Auto) 0.0 Baso # (Auto) 0.1 Abs Immat Gran (auto) 0.02 Absolute Neuts (auto) 3.3 Absolute Nucleated RBC 0.000 Nucleated RBC % (auto) 0.0 Sodium 131 L 134 L Potassium 3.6 3.5 Chloride 91 L 96 Carbon Dioxide 19 L 22 Anion Gap 25 H 20 BUN 5 L 3 L Creatinine 0.87 0.74 Estim Creat Clear Calc 138.7 180.2 Estimated GFR > 60 > 60 Random Glucose 84 98 Calcium 9.6 9.8 Magnesium 1.8 1.8 Vitamin B12 488 Folate 11.4 Imaging Radiology Impressions: ITS Impressions Lumbar Spine X-Ray 03/31/24 09:56 IMPRESSION: 1. Minimal levocurvature of the lumbar spine which may be positional. 2. No acute osseous abnormality. Electronically signed by: Eric Pastor MD 03/31/2024 11:43 AM EDT RP Mental Status Exam Mental Status Exam Narrative: disheveled, unkempt, hospital [facility]. cooperative. no PMA/PMR. some course tremor in right hand. speech somewhat slurred, mumbled, sometime clear. variable loudness, normal amount, incr latency. thoughts disorganized to linear. distractable, clearly attending to internal stimuli. thought bed rail was a bottle of bleach he had to move, glancing to empty chair by the bedside trying to discretely get MD to look at empty chair conspiratorily (as if trying to call MD's attention to something suspicious in the empty chair). not oriented to time, place, or situation. severely impaired memory. mood pretty decent. endorses SI pretty much always, denies plan. denies HI/AVH. affect constricted, hypo-intense, non-labile. Medications Medications Current Medications Acetaminophen (Acetaminophen 325 Mg Tablet) 650 mg PO Q6H PRN PRN Reason: Pain, Mild (Pain Scale 1-3), fever or headache Calcium Carbonate (Calcium Carbonate 750 Mg Tab.Chew) 750 mg PO Q4H PRN PRN Reason: Heartburn Enoxaparin Sodium (Enoxaparin Sodium 40 Mg/0.4 Ml Syringe) 40 mg SUBCUT Q24H [facility] Last Admin: 04/02/24 15:12 Dose: Not Given Famotidine (Famotidine/Pf 20 Mg/2 Ml Vial) 20 mg IVPUSH BID [facility] Last Admin: 04/02/24 08:25 Dose: Not Given Folic Acid (Folic Acid 1 Mg Tablet) 1 mg PO Q24H [facility] Last Admin: 04/02/24 15:12 Dose: Not Given Lorazepam (Lorazepam 1 Mg Tablet) 2 mg PO Q3H PRN PRN Reason: Alcohol Withdrawal Last Admin: 04/02/24 13:04 Dose: 2 mg Magnesium Hydroxide (Milk Of Magnesia 30 Ml Oral.Susp) 30 ml PO DAILY PRN PRN Reason: Constipation Melatonin (Melatonin 3 Mg Tablet) 6 mg PO BEDTIME PRN PRN Reason: Insomnia Multivitamins/Vitamin C (Multivitamin Tablet) 1 tab PO DAILY [facility] Last Admin: 04/02/24 08:15 Dose: 1 tab Nicotine Polacrilex (Nicotine Polacrilex 2 Mg Gum) 2 mg BUCCAL Q2H PRN PRN Reason: Nicotine Cravings Last Admin: 04/02/24 08:43 Dose: 2 mg Pharmacy Consult (Consult Rx Etoh Phenob Im/Po) 1 each MISCELLANE ONCE PRN; Protocol PRN Reason: Consult order Phenobarbital (Phenobarbital 30 Mg Tablet) 60 mg PO BID [facility]; Protocol Stop: 04/03/24 21:01 Last Admin: 04/02/24 08:15 Dose: 60 mg Phenobarbital (Phenobarbital 30 Mg Tablet) 30 mg PO BID [facility]; Protocol Stop: 04/05/24 21:01 Phenobarbital (Phenobarbital 30 Mg Tablet) 30 mg PO DAILY [facility]; Protocol Stop: 04/07/24 09:01 Sodium Chloride (0.9 % Sodium Chloride Flush 3 Ml Syringe) 3 ml IVFLUSH QSHIFT [facility] Last Admin: 04/02/24 08:16 Dose: 3 ml Thiamine HCl (Thiamine Hcl 100 Mg Tablet) 100 mg PO Q24H [facility] Last Admin: 04/02/24 08:15 Dose: 100 mg Allergies Allergies Allergy/AdvReac Type Severity Reaction Status Date / Time No Known Allergies Allergy Verified 03/31/24 09:52 Assessment & Plan Assessment & Plan (1) Delirium, withdrawal, alcoholic: Status: Acute Code(s): F10.931 - Alcohol use, unspecified with withdrawal delirium (2) Alcohol withdrawal: Status: Acute Code(s): F10.939 - Alcohol use, unspecified with withdrawal, unspecified (3) Alcohol use disorder: Status: Acute Code(s): F10.90 - Alcohol use, unspecified, uncomplicated (4) Depressive disorder, not elsewhere classified: Status: Acute Code(s): F32.89 - Other specified depressive episodes Plan reported h/o depression and alcohol use disorder. came to [facility] c/o SI and alcohol dependence. did not present as delirious or psychotic in interaction with CARE team. later apparently became delirious and was admitted to medicine, behaviors became psychotic and agitated. alcohol withdrawal delirium most likely diagnosis; this would come with psychosis and variable level of consciousness. current presentation consistent with alcohol withdrawal delirium, no other Dx need be invoked. once pt is safely medically detoxed, CARE team can reassess for need for inpatient mental health Tx. manage behaviors/withdrawal with phenobarb, benzos, anti-psychotics as you are doing. Total time managing care of this patient today __55__ minutes.
[2024-04-02 20:00] VITALS: BP 114/68; PULSE 99; RESP 20; TEMP 36.8; O2SAT 95
[2024-04-02] MEDS: Famotidine/PF 20 MG/2 ML VIAL IVPUSH (21:51)
--- NOTE | 2024-04-02 22:29 | PC.NURSE ---
Assumed care of patient at 19:00. Pt on CIWA protocol with seizure and aspiration precautions in place. Continues with high 1:1 sitter for SI hx. Pt denies SI/HI this evening and was med compliant, calm and cooperative with assessment. Please see shift assessment, tasks, and MAR for full details. Handoff report given to oncoming RN at 22:15.
[2024-04-03] VITALS (7 sets, daily range): BP systolic 109–138; BP diastolic 66–85; PULSE 71–100; RESP 16–20; TEMP 36–37.1; O2SAT 96–99
[2024-04-03] MEDS: Nicotine Polacrilex 2 MG GUM BUCCAL ×4 (02:28→14:37)
[2024-04-03 07:42] LABS: Hematocrit 34.3 % (42.0-52.0); Hemoglobin 12.3 g/dl (14.0-18.0); Mean Corpuscular HGB Conc 35.9 g/dl (31.0-36.0); Mean Corpuscular Hemoglobin 34.2 pg (27.0-33.0); Mean Corpuscular Volume 95.3 fL (80.0-98.0); Mean Platelet Volume 10.7 fL (9.4-12.4); Platelet Count 129 X10*3/uL (160-400); Red Cell Distribution Width 12.2 % (11.0-16.0); White Blood Count 4.1 X10*3/uL (4.8-10.8)
[2024-04-03 08:02] LABS: Anion Gap 17 (12-20); Blood Urea Nitrogen 3 mg/dL (9-16); Calcium 9.1 mg/dL (8.4-10.2); Carbon Dioxide 27 mmol/L (22-29); Chloride 95 mmol/L (96-108); Creatinine Clr Calc Pharmacy 202.1; Estimated Glomerular Filt Rate > 60; Glucose Random 82 mg/dL (60-115); Potassium 2.8 mmol/L (3.3-5.1); Sodium 136 mmol/L (135-145)
[2024-04-03] MEDS: PHENobarbitaL 30 MG TABLET 60 MG PO ×2 (08:57→20:19)
[2024-04-03] MEDS: Famotidine/PF 20 MG/2 ML VIAL IVPUSH ×2 (08:57→20:20)
[2024-04-03] MEDS: Thiamine HCL 100 MG TABLET PO (08:57)
[2024-04-03] MEDS: Potassium Chloride ER 20 MEQ TAB.ER.PRT 40 MEQ PO ×3 (08:57→20:19)
[2024-04-03] MEDS: Multivitamin TABLET 1 TAB PO (08:58)
[2024-04-03] MEDS: 0.9 % Sodium Chloride Flush 3 ML SYRINGE IVFLUSH ×2 (08:58→20:20)
[2024-04-03 09:36] LABS: Magnesium 1.8 mg/dL (1.6-2.6)
--- NOTE | 2024-04-03 11:28 | HO.PM.IMPN ---
Subjective Subjective Date of Service: 04/03/24 Interval History: Follow up on alcohol withdrawal. He was extremely delirius yesterday with hallucination and severe agitation, He is doing much better today, very calm, alert oriented and pleasant and cooperative. CIWA 2 Physical Exam Vital Signs: Vital Signs: Last Vital Signs Temp 98.0 F 04/03/24 11:21 Pulse 72 04/03/24 11:21 Resp 18 04/03/24 11:21 BP 126/69 04/03/24 11:21 Pulse Ox 99 04/03/24 11:21 O2 Del Method Room Air 04/03/24 11:21 BMI result Body Mass Index 29.3 Const: Other: General: AO X 3, no acute distress Resp: CTA bilateral CVS: S1,S2,RRR GI: +BS, NT, no distention Skin: No rash Neuro: motor grossly intact Psych: appropriate affect Objective Data Active Medications Acetaminophen (Acetaminophen 325 Mg Tablet) 650 mg PO Q6H PRN PRN Reason: Pain, Mild (Pain Scale 1-3), fever or headache Calcium Carbonate (Calcium Carbonate 750 Mg Tab.Chew) 750 mg PO Q4H PRN PRN Reason: Heartburn Enoxaparin Sodium (Enoxaparin Sodium 40 Mg/0.4 Ml Syringe) 40 mg SUBCUT Q24H [facility] Last Admin: 04/02/24 15:12 Dose: Not Given Documented By: SNOW Non-Admin Reason: Patient Refused Famotidine (Famotidine/Pf 20 Mg/2 Ml Vial) 20 mg IVPUSH BID [facility] Last Admin: 04/03/24 08:57 Dose: 20 mg Documented By: SNOW Folic Acid (Folic Acid 1 Mg Tablet) 1 mg PO Q24H [facility] Last Admin: 04/02/24 15:12 Dose: Not Given Documented By: SNOW Non-Admin Reason: Patient Refused Lorazepam (Lorazepam 1 Mg Tablet) 2 mg PO Q3H PRN PRN Reason: Alcohol Withdrawal Last Admin: 04/02/24 13:04 Dose: 2 mg Documented By: SNOW Magnesium Hydroxide (Milk Of Magnesia 30 Ml Oral.Susp) 30 ml PO DAILY PRN PRN Reason: Constipation Melatonin (Melatonin 3 Mg Tablet) 6 mg PO BEDTIME PRN PRN Reason: Insomnia Multivitamins/Vitamin C (Multivitamin Tablet) 1 tab PO DAILY [facility] Last Admin: 04/03/24 08:58 Dose: 1 tab Documented By: SNOW Nicotine Polacrilex (Nicotine Polacrilex 2 Mg Gum) 2 mg BUCCAL Q2H PRN PRN Reason: Nicotine Cravings Last Admin: 04/03/24 09:05 Dose: 2 mg Documented By: SNOW Pharmacy Consult (Consult Rx Etoh Phenob Im/Po) 1 each MISCELLANE ONCE PRN; Protocol PRN Reason: Consult order Phenobarbital (Phenobarbital 30 Mg Tablet) 60 mg PO BID [facility]; Protocol Stop: 04/03/24 21:01 Last Admin: 04/03/24 08:57 Dose: 60 mg Documented By: SNOW Phenobarbital (Phenobarbital 30 Mg Tablet) 30 mg PO BID [facility]; Protocol Stop: 04/05/24 21:01 Phenobarbital (Phenobarbital 30 Mg Tablet) 30 mg PO DAILY [facility]; Protocol Stop: 04/07/24 09:01 Potassium Chloride (Potassium Chloride Er 20 Meq Tab.Er.Prt) 40 meq PO Q6H [facility] Stop: 04/03/24 20:16 Last Admin: 04/03/24 08:57 Dose: 40 meq Documented By: SNOW Sodium Chloride (0.9 % Sodium Chloride Flush 3 Ml Syringe) 3 ml IVFLUSH QSHIFT [facility] Last Admin: 04/03/24 08:58 Dose: 3 ml Documented By: SNOW Thiamine HCl (Thiamine Hcl 100 Mg Tablet) 100 mg PO Q24H [facility] Last Admin: 04/03/24 08:57 Dose: 100 mg Documented By: SNOW Labs 04/03/24 06:37 04/03/24 06:37 Labs: Laboratory Results - last 24 hr 04/03/24 06:37 MCV 95.3 MCH 34.2 H MCHC 35.9 RDW 12.2 Plt Count 129 L MPV 10.7 Absolute Nucleated RBC 0.000 Nucleated RBC % (auto) 0.0 Anion Gap 17 Estim Creat Clear Calc 202.1 Estimated GFR > 60 Random Glucose 82 Calcium 9.1 D Magnesium 1.8 Assessment and Plan (1) Depressive disorder, not elsewhere classified: Status: Acute (2) Alcohol use disorder: Status: Acute (3) Delirium, withdrawal, alcoholic: Status: Acute Plan 29 yo male with a pmhx signficant for etoh abuse and depression, presented to the ED with etoh withdrawal, SI and depression. acute alcohol withdrawal with hallucination.. Was very agitated yesterday and required additional meds including zyprexa, extra phenobarbital and ativan. Today, he is very calm with negligeable sings or symptoms of alcohol withdrawal. -continue Phenobarbital, Ativan, folic acid, thiamine -addiction med consult Tachycardia--due above , resolved depression/SI. He is denying SI now -CARE consult by tommorrow if no furthe sings of withdrawal Leukopenia--d/t alcohol use, stable. full code VTE prohy: pneumoboots and lovenox Pt with acute etoh withdrawal requring admission to telemetry for treatment and monitoring through withdrawal for at least 2 midnights stay. Quality Stroke Does the patient have a stroke diagnosis?: No VTE Prior VTE?: No VTE Risk Level:: Medical - moderate - high VTE Device Contraindication: N/A - Device Ordered VTE Drug Contraindication: N/A - Med Ordered
--- NOTE | 2024-04-03 11:29 | MHC.RECOVRN ---
AUDIT-C Brief Intervention Pt had positive screen for unhealthy alcohol use on admission, subsequently met with t/w to discuss alcohol use and recovery supports/options. This underwriter mortgage loan met with patient to discuss current alcohol use and concerns related to increased risk of alcohol related problems.? Pt reports he has been drinking since the age of 17 but that it has recently started to escalate. Discussed how alcohol use has impacted health, including negative impact on mental, physical health and family relationships Withdrawal History: Pt reports tremors and confusion upon stopping ETOH but denies any seizure hx Treatment History: N/A Supports:?Mother Discussed risk reduction strategies including drinking below the recommended limit. Provided pt with written resources including information on inpatient and outpatient treatment, MARIBETH, harm reduction, and recovery coaching. Pt is waffling between inpt or outpt f/u. ACS team to F/U with pt. to assist once decision is made. Pt provided with t/w contact information if questions or concerns arise. Denies other questions or concerns at this time.
--- NOTE | 2024-04-03 11:32 | MHC.RECOVRN ---
Met with pt in 482-1 to follow up and provide support.? Pt much clearer today and does not appear to be experiencing any further hallucinations/delusions. Pt awake, alert, easily engages in conversation. T/W re-reviewed literature left for pt. yesterday re: AUD treatment and pt is trying to decide between inpt and outpt. ?He will further review the information and make a decision. Pt denies other concerns at this time.? T/w available as needed. Report to ACS team and floor nurse Tiny. ACS available PRN
[2024-04-03] MEDS: Folic Acid 1 MG TABLET PO (14:37)
[2024-04-03] MEDS: Enoxaparin Sodium 40 MG/0.4 ML SYRINGE SUBCUT (14:38)
[2024-04-04 03:22] VITALS: BP 127/70; PULSE 65; RESP 18; TEMP 36.4; O2SAT 97
[2024-04-04] MEDS: Nicotine Polacrilex 2 MG GUM BUCCAL ×3 (04:53→15:03)
[2024-04-04 07:37] VITALS: BP 113/71; PULSE 69; RESP 19; TEMP 36.2; O2SAT 98
[2024-04-04] MEDS: PHENobarbitaL 30 MG TABLET PO (09:14)
[2024-04-04] MEDS: Thiamine HCL 100 MG TABLET PO (09:14)
[2024-04-04] MEDS: Multivitamin TABLET 1 TAB PO (09:15)
[2024-04-04] MEDS: Famotidine/PF 20 MG/2 ML VIAL IVPUSH (09:15)
[2024-04-04] MEDS: 0.9 % Sodium Chloride Flush 3 ML SYRINGE IVFLUSH (09:15)
--- NOTE | 2024-04-04 10:34 | P.PNIM_ITS ---
Subjective Subjective Date of Service: 04/04/24 Interval History: Doing well, no sings of withdrawal cooprative, denies si Physical Exam 2 Vital Signs: Vital Signs: Last Vital Signs Temp 97.2 F 04/04/24 07:37 Pulse 69 04/04/24 07:37 Resp 19 04/04/24 07:37 BP 113/71 04/04/24 07:37 Pulse Ox 98 04/04/24 07:37 O2 Del Method Room Air 04/04/24 07:37 BMI result Body Mass Index 29.3 General: AO X 3, no acute distress Resp: CTA bilateral CVS: S1,S2,RRR GI: +BS, NT, no distention Skin: No rash Neuro: motor grossly intact Psych: appropriate affect Objective Data Active Medications Acetaminophen (Acetaminophen 325 Mg Tablet) 650 mg PO Q6H PRN PRN Reason: Pain, Mild (Pain Scale 1-3), fever or headache Calcium Carbonate (Calcium Carbonate 750 Mg Tab.Chew) 750 mg PO Q4H PRN PRN Reason: Heartburn Enoxaparin Sodium (Enoxaparin Sodium 40 Mg/0.4 Ml Syringe) 40 mg SUBCUT Q24H [facility] Last Admin: 04/03/24 14:38 Dose: 40 mg Documented By: SNOW Famotidine (Famotidine/Pf 20 Mg/2 Ml Vial) 20 mg IVPUSH BID [facility] Last Admin: 04/04/24 09:15 Dose: 20 mg Documented By: SNOW Folic Acid (Folic Acid 1 Mg Tablet) 1 mg PO Q24H [facility] Last Admin: 04/03/24 14:37 Dose: 1 mg Documented By: SNOW Lorazepam (Lorazepam 1 Mg Tablet) 2 mg PO Q3H PRN PRN Reason: Alcohol Withdrawal Last Admin: 04/02/24 13:04 Dose: 2 mg Documented By: SNOW Magnesium Hydroxide (Milk Of Magnesia 30 Ml Oral.Susp) 30 ml PO DAILY PRN PRN Reason: Constipation Melatonin (Melatonin 3 Mg Tablet) 6 mg PO BEDTIME PRN PRN Reason: Insomnia Multivitamins/Vitamin C (Multivitamin Tablet) 1 tab PO DAILY [facility] Last Admin: 04/04/24 09:15 Dose: 1 tab Documented By: SNOW Nicotine Polacrilex (Nicotine Polacrilex 2 Mg Gum) 2 mg BUCCAL Q2H PRN PRN Reason: Nicotine Cravings Last Admin: 04/04/24 09:18 Dose: 2 mg Documented By: SNOW Nicotine Polacrilex (Nicotine Polacrilex 2 Mg Gum) 2 mg BUCCAL Q2H PRN PRN Reason: Nicotine Cravings Pharmacy Consult (Consult Rx Etoh Phenob Im/Po) 1 each MISCELLANE ONCE PRN; Protocol PRN Reason: Consult order Phenobarbital (Phenobarbital 30 Mg Tablet) 30 mg PO BID [facility]; Protocol Stop: 04/05/24 21:01 Last Admin: 04/04/24 09:14 Dose: 30 mg Documented By: SNOW Phenobarbital (Phenobarbital 30 Mg Tablet) 30 mg PO DAILY [facility]; Protocol Stop: 04/07/24 09:01 Sodium Chloride (0.9 % Sodium Chloride Flush 3 Ml Syringe) 3 ml IVFLUSH QSMOFT [facility] Last Admin: 04/04/24 09:15 Dose: 3 ml Documented By: SNOW Thiamine HCl (Thiamine Hcl 100 Mg Tablet) 100 mg PO Q24H [facility] Last Admin: 04/04/24 09:14 Dose: 100 mg Documented By: SNOW Labs 04/03/24 06:37 04/03/24 06:37 Assessment and Plan (1) Depressive disorder, not elsewhere classified: Status: Acute (2) Alcohol use disorder: Status: Acute (3) Delirium, withdrawal, alcoholic: Status: Acute Plan 29 yo male with a pmhx signficant for etoh abuse and depression, presented to the ED with etoh withdrawal, SI and depression. acute alcohol withdrawal with hallucination. Doing well, no withdrawal symptoms -continue Phenobarbital, Ativan, folic acid, thiamine -addiction med has been following and offered resources, he deciding between inpt or outpatient help Tachycardia--due above , resolved depression/SI. He is denying SI now -CARE consult Leukopenia--d/t alcohol use, stable. Hypokalemia--replaced recheck lab today, mag has been ok full code VTE prohy: pneumoboots and lovenox Pt with acute etoh withdrawal requring admission to telemetry for treatment and monitoring through withdrawal for at least 2 midnights stay. Quality Stroke Does the patient have a stroke diagnosis?: No VTE Prior VTE?: No VTE Risk Level:: Medical - moderate - high VTE Device Contraindication: N/A - Device Ordered VTE Drug Contraindication: N/A - Med Ordered
[2024-04-04 10:37] LABS: Anion Gap 14 (12-20)
[2024-04-04 10:49] LABS: Blood Urea Nitrogen 3 mg/dL (9-16); Calcium 9.5 mg/dL (8.4-10.2); Carbon Dioxide 25 mmol/L (22-29); Chloride 102 mmol/L (96-108); Creatinine Clr Calc Pharmacy 205.2; Estimated Glomerular Filt Rate > 60; Glucose Random 97 mg/dL (60-115); Potassium 4.7 mmol/L (3.3-5.1); Sodium 136 mmol/L (135-145)
--- NOTE | 2024-04-04 11:41 | MHC.CARE ---
Patient evaluated by the CARE Team, he does not require an inpatient psychiatric admission at this time. Plan is for patient to provide his current phone number to staff when he receives his belongings and before he leaves [facility] [place] and if that is not possible, patient will reach out to the Recovery Team so they can follow up with resources for him. Dr. Alexandre and RNTiny Written assessment to follow.
[2024-04-04 11:48] VITALS: BP 134/75; PULSE 96; RESP 18; TEMP 36.6; O2SAT 98
[2024-04-04] MEDS: Enoxaparin Sodium 40 MG/0.4 ML SYRINGE SUBCUT (15:03)
[2024-04-04] MEDS: Folic Acid 1 MG TABLET PO (15:03)
[2024-04-04 15:38] VITALS: BP 144/86; PULSE 60; RESP 20; TEMP 36.2; O2SAT 96
--- NOTE | 2024-04-04 17:13 | MHC.CARE ---
Patient contact information updated with registration.
--- NOTE | 2024-04-04 17:41 | PM.DS ---
DS: Providers Provider Date of Service: 04/04/24 Date of admission: 04/01/24 13:21 Primary care physician: None Physician Consults: 03/31/24 11:30 Consult to Care Team Stat Comment: Reason for consultation: SI ETOH 04/01/24 13:41 Addiction Medicine Routine Consulting Provider: Addiction Covering Reason for consultation: etoh abuse/withdrawal Has provider been notified: No 04/02/24 08:40 Consult to Psychiatry Routine Consulting Provider: Psych Covering Reason for consultation: acute pyshosis, 04/04/24 08:27 Consult to Care Team Routine Comment: Reason for consultation: Si, medically set for dc DS: Diagnosis Discharge Diagnosis (1) Depressive disorder, not elsewhere classified: Status: Acute (2) Alcohol use disorder: Status: Acute (3) Delirium, withdrawal, alcoholic: Status: Acute DS: Summary Hospital Course Hospital Course: Chief Complaint: etoh withdrawal, depression, SI 29 yo male with a pmhx signficant for etoh abuse and depression, presented to the ED with etoh withdrawal, SI and depression. he reports heavy etoh use since a teenager, currently consuming 1 handle of etoh/day. would like to stop drinking. no nausea or vomiting. nurses noted visual and auditory hallucinations, pt declines. difficult history to obtain Hospital course: Patient presented as a crisis patient with suicidal ideation, while waiting for a possible Psych admission, he became delerius witha agitation and hallucination with clinical presentation consistent with alcohol withdrawal. He was initiated on treatment with alcohol withdrawal with phenobarbital, ativan and admitted for further. He continuesto be very agitated, with hallucination and required higher doses of phenobarbital in addition to Ativan, and he ultimately became calm with resolution of all symptoms of alcohol withdrawal and CIWA being zero. As for depression, he has been evaluated by the CARE team and no longer deemed to be at risk for self harm, he denies SI/HI to me as well. He has been cooperative. Recovery team has also seen him and has given resources to stay sobber Time Attestation Discharge Coordination Time (in mins): 35 Quality: Safe Use of Opioids Does Pt have an Active Cancer Diagnosis on the Problem List?: No Quality: Stroke Does the patient have a stroke diagnosis?: No Physical Exam Vital Signs: Vital Signs: Last Vital Signs Temp 97.2 F 04/04/24 15:38 Pulse 60 04/04/24 15:38 Resp 20 04/04/24 15:38 BP 144/86 H 04/04/24 15:38 Pulse Ox 96 04/04/24 15:38 O2 Del Method Room Air 04/04/24 15:38 BMI result Body Mass Index 29.3 DS: Data Data Completed and Pending Labs on day of discharge: Laboratory Results - last 24 hr 04/04/24 07:35 Sodium 136 Potassium 4.7 D Chloride 102 Carbon Dioxide 25 Anion Gap 14 BUN 3 L Creatinine 0.65 Estim Creat Clear Calc 205.2 Estimated GFR > 60 Random Glucose 97 Calcium 9.5 Discharge Plan Discharge Anticipated Discharge Date/Time: 04/04/24 17:34 Patient Disposition: Home, Self-Care Discharge Diagnosis: Aclohol withdrawal, Delirium, Depression Referrals: Physician,None [Primary Care Provider] - 1 Week Discharge Medications: Continued No Known Home Meds Discharge Orders: Discharge Order (Routine); Ordered 04/04/24 Ordered By: Dario Alexandre Diet: Advance to usual diet Activity on Discharge: As tolerated Stand Alone Forms: Patient Portal Discharge page Print Language: Senegalese Care Plan Goals: recovery from alcohol withdrawal, alcohol dependency Health Concerns: alcohol dependency alcohol withdrawal depression Plan of Treatment: Avoid alcohol follow through the resources given to you call crisis if you have any thought of hurting yourself Assessment: see above
[2024-04-07 06:59] LABS: Vitamin B1 14 nmol/L (8-30)
== END 2024-04-04 17:52 | disposition home or self-care (01) | DRG 775 ==
LOC: HO.ED 04-01 12:18 → HO.EDOVER 04-01 13:48 → HO.IMC 04-01 19:28
PROVIDERS: Admitting Provider Physician Assistant; Emergency Provider Emergency Medicine; Visit Provider Internal Medicine
DX: F10.131 Alcohol abuse with withdrawal delirium (principal); R45.851 Suicidal ideations; E87.6 Hypokalemia; F10.129 Alcohol abuse with intoxication, unspecified; F17.210 Nicotine dependence, cigarettes, uncomplicated; Z71.6 Tobacco abuse counseling; Y90.8 Blood alcohol level of 240 mg/100 ml or more; F32.A Depression, unspecified
CPT/HCPCS: 36415; 72100; 80048; 80053; 80307; 81001; 82607; 82746; 83735; 84425; 85025; 85027; 99285; J1650; J2060; J2359; J2560; J7120; S9485

== ENCOUNTER → 2024-04-01 13:21 | Outpatient (BNV) | payer MEDICAID, SELFPAY | PROVIDERS: Admitting Provider Physician Assistant; Emergency Provider Emergency Medicine; Visit Provider Physician Assistant | DX: F10.130 Alcohol abuse with withdrawal, uncomplicated (principal) | CPT/HCPCS: 99223; 99232; 99239; 99499 ==

== ENCOUNTER → 2024-04-01 13:21 | Outpatient (BNV) | payer MEDICAID, SELFPAY | PROVIDERS: Admitting Provider Physician Assistant; Emergency Provider Emergency Medicine; Visit Provider Internal Medicine Critical Care Medicine | DX: F10.939 Alcohol use, unspecified with withdrawal, unspecified (principal) | CPT/HCPCS: 99233 ==

== ENCOUNTER → 2024-04-01 13:21 | Outpatient (BNV) | payer MEDICAID, SELFPAY | PROVIDERS: Admitting Provider Physician Assistant; Emergency Provider Emergency Medicine; Visit Provider Psychiatry & Neurology Psychiatry | DX: F10.931 Alcohol use, unspecified with withdrawal delirium (principal); F32.89 Other specified depressive episodes | CPT/HCPCS: 99233 ==

== ENCOUNTER 2024-07-24 12:18 | Emergency (ER) | payer OTHER, SELFPAY ==
[2024-07-24 12:24] VITALS: BP 124/70; PULSE 140; O2SAT 100; BMI 26.5
--- NOTE | 2024-07-24 12:29 | ED.GENADULT ---
HPI - General Adult General Chief complaint: ETOH/Substance Use Stated complaint: WANTS DETOX Time Seen by Provider: 07/24/24 12:21 Source: patient and EMS Mode of arrival: EMS Limitations: no limitations History of Present Illness ED Provider: THERESA Moore HPI narrative: This is a 29-year-old male history of alcohol use disorder presents via ambulance requesting detox he reports he was in rehab 2 weeks ago however since then he has been drinking intermittently he does not feel like the medicines that rehab set him work. He reports that he last had a drink prior to arrival he typically drinks 8-9 Natty Daddys and hard liquor. He is unable to tell me how much she drank prior to getting here however he tells me ?I am not drunk?. Reports increasing anxiety. At this time denies suicidal ideation, homicidal ideation, visual, tactile and auditory hallucinations. He denies medical complaints such as chest pain, shortness breath, nausea, vomiting, abdominal pain, headache, vision changes, dizziness and weakness. No fall or trauma Related Data Home Medications ?Medication ?Instructions ?Recorded ?Confirmed No Known Home Meds 03/31/24 03/31/24 Allergies Allergy/AdvReac Type Severity Reaction Status Date / Time No Known Allergies Allergy Verified 07/24/24 12:25 Review of Systems Review of Systems: Yes all other systems are reviewed and are negative PMFSH Past Medical History Attestation statement: The following information was validated with the patient. Source: old records reviewed and nursing notes reviewed Medical History Alcohol use disorder Alcohol abuse Alcohol abuse Social History Social History Household Members: Family Household Members Other:: patient reports living with his mother Housing: Apartment Do you presently have visiting nurse or other home services: No Alcohol intake: current Alcohol intake frequency: 3 or more drinks per day Alcohol type: beer Comment: 1:1 Observation Patient Tobacco Use Status: Current everyday Tobacco user Smoked in Last 30 Days: No e-Cigarette/Vaping Use: Currently Using Second Hand Smoke Exposure: No Use of substances other than those prescribed or required for medical reasons: No Advance Directives: No Advance Directives Information Provided: No Do you have a plan to hurt others: No Plan Physical Exam ED Vital Signs: Vital Signs - 24 hr 07/24/24 12:42 07/24/24 13:46 Temperature 97.8 F Pulse Rate 139 H 139 H Respiratory Rate 16 16 Blood Pressure 131/74 131/74 Pulse Oximetry 95 95 Oxygen Delivery Method Room Air BMI result Body Mass Index 26.5 vss Appearance: Alert.? Oriented X3.? No acute distress.? Patient appears intoxicated he smells like ethanol. Head: Normocephalic, atraumatic, no step-offs or deformities Eyes: Pupils equal, round and reactive to light.? Neck: Normal inspection.? Neck supple.? CVS: Normal heart rate and rhythm.? Pulses normal.? Respiratory: No respiratory distress.? Breath sounds normal.? Abdomen: Soft and nontender.? Skin: Skin warm and dry.? Normal skin color.? Normal skin turgor.? Extremities: No lower extremity edema.? No calf ttp. 5/5 strength to bilateral upper and lower extremities Neuro: Oriented X 3.? No motor deficit.? No sensory deficit. CN 2-12 intact Course Reevaluation(s) Reevaluation #1: CBC unremarkable. Patient now states he does not want to be here not interested in detox and he would like to go home. Expressed the importance of getting a safe ride home he will not be allowed to go home without a ride as he appears intoxicated. He is not suicidal he is not homicidal no indication for Section 12 at this time. If patient gets a safe ride he can be discharged. Reevaluation #2: Patient did not want to stay for detox. His sister picked him up. No abnormalities on chemistry. His ethanol was clearly elevated 323. He understands risks of leaving and will be signing out against medical advice. Sister came into the department to pick him up. Time: 14:04 Medications Administered Discontinued Medications Generic Name Dose Route Start Last Admin Trade Name Joshq PRN Reason Stop Dose Admin Lorazepam 2 mg 07/24/24 12:24 07/24/24 12:47 Lorazepam 1 Mg Tablet PO 07/24/24 12:25 2 mg ONCE ONE Administration Medical Decision Making Medical Decision Making [facility] Narrative: 29-year-old male presents requesting detox reports he has been drinking heavily for the past 2 weeks. Physical exam patient is smells like alcohol. History and physical exam consistent with acute alcohol intoxication no signs of withdrawal at this time likely because patient just how to drink. Will rule out polysubstance abuse. Unlikely metabolic derangements. Plan labs, medical clearance evaluation by recovery. Differential Diagnosis Differential Diagnoses: The differential diagnosis associated with the presentation includes (History and physical exam consistent with acute alcohol intoxication no signs of withdrawal at this time likely because patient just how to drink. Will rule out polysubstance abuse. Unlikely metabolic derangements.) Admission/Observation Consideration of admission/observation: Escalation of care including admission/observation considered Lab Data MDM Lab Attestation statement: I reviewed the patient's lab results. 07/24/24 12:53 07/24/24 12:53 Labs: Lab Results 07/24/24 Range/Units 12:53 WBC 8.7 (4.8-10.8) X10*3/uL RBC 5.04 D (4.60-5.80) X10*6/uL Hgb 16.3 D (14.0-18.0) g/dl Hct 46.6 D (42.0-52.0) % MCV 92.5 (80.0-98.0) fL MCH 32.3 (27.0-33.0) pg MCHC 35.0 (31.0-36.0) g/dl RDW 11.9 (11.0-16.0) % Plt Count 342 D (160-400) X10*3/uL MPV 9.5 (9.4-12.4) fL Immature Gran % (Auto) 0.1 (0.0-0.4) % Neut % (Auto) 52.3 (45-73) % Lymph % (Auto) 36.3 (20-40) % [place] % (Auto) 9.8 (2-11) % Eos % (Auto) 0.8 (0-4) % Baso % (Auto) 0.7 (0-2) % Lymph # (Auto) 3.2 (1.2-4.9) X10*3/uL [place] # (Auto) 0.9 (0.1-1.2) X10*3/uL Eos # (Auto) 0.1 (0.0-0.4) X10*3/uL Baso # (Auto) 0.1 (0.0-0.2) X10*3/uL Abs Immat Gran (auto) 0.01 (0.00-0.03) X10*3/uL Absolute Neuts (auto) 4.5 (2.0-8.3) x10*3/uL Absolute Nucleated RBC 0.000 (0.0-0.012) X10*3/uL Nucleated RBC % (auto) 0.0 (0.0-0.2) /100WBC Sodium 146 H (135-145) mmol/L Potassium 3.9 (3.3-5.1) mmol/L Chloride 108 (96-108) mmol/L Carbon Dioxide 24 (22-29) mmol/L Anion Gap 18 (12-20) BUN 8 L (9-16) mg/dL Creatinine 0.97 (0.5-1.4) mg/dL Estim Creat Clear Calc 117.0 Estimated GFR > 60 Random Glucose 108 (60-115) mg/dL Calcium 9.7 (8.4-10.2) mg/dL Magnesium 2.1 (1.6-2.6) mg/dL Total Bilirubin 0.2 (0.0-1.0) mg/dL AST 37 (5-37) U/L ALT 28 (0-40) U/L Alkaline Phosphatase 122 H (39-117) U/L Total Protein 7.7 (6.5-8.0) g/dL Albumin 4.0 (3.5-5.0) g/dL Salicylates < 5.0 L (15-30) mg/dL Urine Opiates Screen Not Detected (Not Detect) Ur Buprenorphine Scrn Not Detected (Not Detect) ng/mL Ur Oxycodone Screen Not Detected (Not Detect) ng/mL Urine Methadone Screen Not Detected (Not Detect) ng/mL Urine Fentanyl Screen Not Detected (Not Detect) Acetaminophen < 3 (<30) mcg/mL Ur Barbiturates Screen Not Detected (Not Detect) Ur Phencyclidine Scrn Not Detected (Not Detect) Ur Amphetamines Screen Not Detected (Not Detect) U Benzodiazepines Scrn Not Detected (Not Detect) Urine Cocaine Screen Not Detected (Not Detect) U Marijuana (THC) Screen Not Detected (Not Detect) Ethyl Alcohol 323 H* mg/dL External Record Review External record reviewed: Inpatient record, Office record, Outpatient record, Prior outpatient labs, Prior outpatient radiology, Primary care record and Outside ED record Chronic Conditions Patient?s care impacted by: Other Discharge Plan Discharge Clinical Impression: Diagnosis unknown Patient Disposition: Left Against Medical Advice Additional Instructions: Take your medications as prescribed. If you were prescribed antibiotics today, it is important that you take your medication to their entirety, do not skip any doses, do not finish them early. Follow-up with your primary care provider this week. Return to the emergency department with new or worsening symptoms. Such as fevers, chills, chest pain, shortness of breath, nausea, vomiting, dizziness, headache, vision changes, lethargy In case of emergency call 911 Prescriptions: No Action No Known Home Meds Stand Alone Forms: Against Medical Advice Interventions: ED Discharge Assessment Last Done: 07/24/24 13:46 Discharge Date/Time: 07/24/24 13:49 Print Language: Japanese
[2024-07-24 12:42] VITALS: BP 131/74; PULSE 139; RESP 16; O2SAT 95
[2024-07-24] MEDS: LORazepam 1 MG TABLET 2 MG PO (12:47)
[2024-07-24 12:57] LABS: MANUAL DIFF FLAG NO
[2024-07-24 12:59] LABS: Basophils Absolute Auto 0.1 X10*3/uL (0.0-0.2); Basophils Percent Auto 0.7 % (0-2); Eosinophils Absolute Auto 0.1 X10*3/uL (0.0-0.4); Eosinophils Percent Auto 0.8 % (0-4); Hematocrit 46.6 % (42.0-52.0); Hemoglobin 16.3 g/dl (14.0-18.0); Imm Gran Abs Auto 0.01 X10*3/uL (0.00-0.03); Imm Gran Pct Auto 0.1 % (0.0-0.4); Lymphocytes Absolute Auto 3.2 X10*3/uL (1.2-4.9); Lymphocytes Percent Auto 36.3 % (20-40); Mean Corpuscular Hemoglobin 32.3 pg (27.0-33.0); Mean Corpuscular Volume 92.5 fL (80.0-98.0); Mean Platelet Volume 9.5 fL (9.4-12.4); Monocytes Absolute Auto 0.9 X10*3/uL (0.1-1.2); Monocytes Percent Auto 9.8 % (2-11); Neutrophils Absolute Auto 4.5 x10*3/uL (2.0-8.3); Neutrophils Percent Auto 52.3 % (45-73); Platelet Count 342 X10*3/uL (160-400); Red Blood Count 5.04 X10*6/uL (4.60-5.80); Red Cell Distribution Width 11.9 % (11.0-16.0); White Blood Count 8.7 X10*3/uL (4.8-10.8)
--- NOTE | 2024-07-24 13:00 | PC.NURSE ---
biba s/p being d/c'd from rehab x 2 weeks ago. prescribed rx for withdrawal sx but states medication has not been helpful. pt presents to the ED w/ increasing withdrawal sx that endorsed relapse. last drank unknown amount of alcohol x 20 min [employer]. hx alcohol seizures. denies drug use/SI/HI/AV/VH. upon ED arrival - pt seemingly intoxicated. a&ox4. vss and up to date aside from being tachycardic. pt denies chest pain/palpitations/sob. pt changed over. belongings obtained. list created. labs/urine obtained/sent to lab. precautions in place. no sob/wob noted. respirations even/unlabored. plan of care ongoing.
--- NOTE | 2024-07-24 13:10 | PC.NURSE ---
pt requesting to leave. admitting provider/recovery support RN notified/aware.
[2024-07-24 13:12] LABS: Amphetamine Screen Urine Not Detected (Not Detect); Barbiturates, Urine Not Detected (Not Detect); Benzodiazepines Screen Urine Not Detected (Not Detect); Buprenorphine Scr Not Detected (Not Detect); Cannabinoid Screen Urine Not Detected (Not Detect); Cocaine Screen Urine Not Detected (Not Detect); Fentanyl, urine Not Detected (Not Detect); Methadone Screen, Urine Not Detected (Not Detect); Opiate Screen Urine Not Detected (Not Detect); Oxycodone Screen Urine Not Detected (Not Detect); Phencyclidine Screen Urine Not Detected (Not Detect)
[2024-07-24 13:25] LABS: Acetaminophen LAB < 3 mcg/mL (<30); Alanine Aminotransferase 28 U/L (0-40); Alkaline Phosphatase 122 U/L (39-117); Anion Gap 18 (12-20); Aspartate Amino Transferase 37 U/L (5-37); Bilirubin Total 0.2 mg/dL (0.0-1.0); Blood Urea Nitrogen 8 mg/dL (9-16); Calcium 9.7 mg/dL (8.4-10.2); Carbon Dioxide 24 mmol/L (22-29); Chloride 108 mmol/L (96-108); Estimated Glomerular Filt Rate > 60; Ethanol 323 mg/dL; Glucose Random 108 mg/dL (60-115); Magnesium 2.1 mg/dL (1.6-2.6); Potassium 3.9 mmol/L (3.3-5.1); Salicylate < 5.0 mg/dL (15-30); Sodium 146 mmol/L (135-145); Total Protein 7.7 g/dL (6.5-8.0)
[2024-07-24 13:46] VITALS: BP 131/74; PULSE 139; RESP 16; TEMP 36.6; O2SAT 95
== END 2024-07-24 13:49 | disposition left against medical advice (07) ==
PROVIDERS: Physician Assistant; Emergency Provider Emergency Medicine
DX: F10.180 Alcohol abuse with alcohol-induced anxiety disorder (principal); F10.129 Alcohol abuse with intoxication, unspecified; Y90.8 Blood alcohol level of 240 mg/100 ml or more; Z71.41 Alcohol abuse counseling and surveillance of alcoholic; Z79.899 Other long term (current) drug therapy; Z51.81 Encounter for therapeutic drug level monitoring
CPT/HCPCS: 36415; 80053; 80143; 80179; 80307; 83735; 85025; 99284; S9485